=== PATIENT | male | born 1995 | race Caucasian/White ===

== ENCOUNTER → 2021-05-12 | Outpatient (CLI) | payer OTHER ==
[~2021-05-12] MED LIST: AMOXICILLIN500 MG PO; AUGMENTIN 875-1 EACH PO; IBUPROFEN600 MG PO
== END ==
LOC: US 05-09 10:00
DX: R10.11 Right upper quadrant pain (principal); R10.12 Left upper quadrant pain
CPT/HCPCS: 76700

== ENCOUNTER → 2022-07-14 | Outpatient (CLI) | payer OTHER ==
[2022-07-14 13:30] LABS: HEMOGLOBIN 15.1 gm/dl (14.0-17.5); RED BLOOD COUNT 4.85 M/UL (4.20-5.50); WHITE BLOOD COUNT 10.7 K/UL (4.5-11.0)
[2022-07-14 13:50] LABS: BUN/CREATININE RATIO 10 (0-10)
== END ==
LOC: LAB 12:00
PROVIDERS: Internal Medicine Gastroenterology
DX: R10.9 Unspecified abdominal pain (principal)
CPT/HCPCS: 36415; 80048; 80076; 82150; 83690; 85027